=== PATIENT | male | born 1945 | race Hispanic/Latino ===

== ENCOUNTER → 2017-08-13 | Outpatient (CLI) | payer OTHER | END | disposition home or self-care (01) | LOC: SHCH 12:58 | PROVIDERS: ATTEND Internal Medicine Cardiovascular Disease | DX: I35.8 Other nonrheumatic aortic valve disorders (principal); I10 Essential (primary) hypertension | CPT/HCPCS: 93306 ==

== ENCOUNTER → 2017-08-25 | Outpatient (CLI) | payer OTHER ==
[~2017-08-25] VITALS: Ht 170.2 cm; Wt 109.3 kg
[~2017-08-25] MED LIST: REGADENOSON 0.4 MG/5 ML PF SYG IVP SCH
== END | disposition home or self-care (01) ==
LOC: SHCH 08:35 → EDUNIT# 08:40
PROVIDERS: ATTEND Internal Medicine Cardiovascular Disease
DX: I25.119 Atherosclerotic heart disease of native coronary artery with unspecified angina pectoris (principal); I10 Essential (primary) hypertension; E78.5 Hyperlipidemia, unspecified
CPT/HCPCS: 78452; 93017; 96374; A9500 ×2; J2785

== ENCOUNTER 2018-09-06 05:58 | Observation (INO) | payer OTHER ==
[2018-09-03 09:34] VITALS: BP 172/87
[2018-09-03 09:37] LABS: BASOPHILS % (AUTO) 0.8 % (0.0-5.0); EOSINOPHILS % (AUTO) 3.1 % (0.0-8.0); HEMATOCRIT 31.9 % (42-54); LYMPHOCYTES % (AUTO) 25.1 % (21.0-51.0); MEAN CORPUSCULAR HEMOGLOBIN 28.2 pg (27.0-33.0); MEAN CORPUSCULAR HGB CONC 33.8 g/dL (32.0-36.0); MEAN CORPUSCULAR VOLUME 83.5 fL (79-99); MONOCYTES % (AUTO) 6.2 % (3.0-13.0); NEUTROPHILS % (AUTO) 64.8 % (40.0-77.0); PLATELET COUNT (AUTO) 224 K/uL (130-400); RED BLOOD CELL COUNT(AUTO) 3.82 MIL/uL (4.50-6.20); RED CELL DISTRIBUTION WIDTH 18.2 % (11.0-15.5); WHITE BLOOD COUNT (AUTO) 7.7 K/uL (4.8-10.8)
[2018-09-03 09:45] LABS: CREATININE 1.2 mg/dL (0.5-1.5); POTASSIUM 4.3 mmol/L (3.5-5.1)
[2018-09-03 09:49] LABS: INR 1.03 (0.85-1.15); PARTIAL THROMBOPLASTIN TIME 30.4 SEC (26.3-35.5); PROTHROMBIN TIME 10.8 SEC (9.6-11.6)
[~2018-09-06] VITALS: Ht 167.6 cm; Wt 95.8 kg
[2018-09-06] VITALS (13 sets, daily range): BP systolic 116–186; BP diastolic 68–84
[~2018-09-06 05:58] MED LIST changes: +AMIO200T5 PO; +APIX5TAB PO; +ATOR20TA65 PO; +BETA1TAB20 PO; +DiphenhydrAMINE HCL 50 MG/ML VIAL IVP SCH; +ERGO500014 PO; +FINA5TAB41 PO; +FURO40TA5 PO; +IRON PO; +METF-445 PO; +METHYLPREDNISOLONE SOD SUCC 125MG/2ML VIAL IVP SCH; +PANT40TA PO; -REGADENOSON 0.4 MG/5 ML PF SYG IVP SCH; +SODIUM CHLORIDE 0.9% 1000ML 1,000 ML IV SCH; +TAMS0.4C32 PO
[2018-09-06] MEDS ORDERED: DiphenhydrAMINE HCL 50 MG/ML VIAL ONE (07:05)
[2018-09-06] MEDS ORDERED: METHYLPREDNISOLONE SOD SUCC 125MG/2ML VIAL ONE (07:06)
[2018-09-06] MEDS ORDERED: BUPIVACAINE/PF 0.25% 30ML VIAL IJ ONE (07:15)
[2018-09-06] MEDS ORDERED: CEFAZOLIN SODIUM 1 GM VIAL ONE (07:15)
[2018-09-06] MEDS ORDERED: MIDAZOLAM HCL 1 MG/ML 2ML VIAL ONE ×2 (07:16→07:42)
[2018-09-06] MEDS ORDERED: LIDOCAINE HCL 1% MDV 50ML VIAL ONE (07:16)
[2018-09-06] MEDS ORDERED: MEPERIDINE-PF 25 MG/ML SYG ONE ×2 (07:16→07:42)
[2018-09-06] MEDS ORDERED: VANCOMYCIN 1GM+NS 250ML 500 ML IV ONE (07:26)
[2018-09-06] MEDS ORDERED: OCTYL 2-CYANOACRYLATE 1 EACH TP ONE (08:35)
[2018-09-06] MEDS ORDERED: ERGOCALCIFEROL (VITAMIN D2) 50,000 UNIT CAPSULE PO SCH (09:00)
[2018-09-06] MEDS ORDERED: DEXTROSE 50%-WATER 50 ML DISP.SYRIN IV PRN (09:00)
[2018-09-06] MEDS: METFORMIN HCL 850 MG TABLET PO SCH ×3 (09:00→17:00)
[2018-09-06] MEDS ORDERED: ACETAMINOPHEN-CODEINE 300/30MG TAB PO PRN ×2 (09:00)
[2018-09-06] MEDS ORDERED: MULTIVITAMIN WITH MINERALS TABLET PO SCH (09:00)
[2018-09-06] MEDS ORDERED: ONDANSETRON HCL 4 MG/2 ML VIAL IV PRN (09:00)
[2018-09-06] MEDS: FERROUS SULFATE 325 MG TABLET.DR PO SCH (14:36)
[2018-09-06] MEDS: FINASTERIDE 5 MG TABLET PO SCH (14:36)
[2018-09-06] MEDS: PANTOPRAZOLE SODIUM 40 MG TABLET.DR PO SCH ×2 (14:36→21:13)
[2018-09-06] MEDS: AMIODARONE HCL 200 MG TABLET PO SCH (14:36)
[2018-09-06] MEDS: TAMSULOSIN HCL 0.4 MG CAP.ER.24H PO SCH (14:37)
[2018-09-06] MEDS: FUROSEMIDE 40 MG TABLET PO SCH (14:37)
[2018-09-06] MEDS: INSULIN HUMULIN R 100 UNIT/ML 3ML SQ SCH ×3 (15:05→21:12)
--- NOTE | 2018-09-06 20:00 | NUR ---
DRESSING TO LEFT UPPER SHOULDER CLEAN, DRY, INTACT. POSITIVE RADIAL PULSE, ARM/HAND WARM, MOVEMENT AND SENSATION INTACT. SLING IN PLACE.
[2018-09-06] MEDS: VIT C PO SCH (21:00)
[2018-09-06] MEDS: ZINC PO SCH (21:00)
[2018-09-06] MEDS: VIT E PO SCH (21:00)
[2018-09-06] MEDS ORDERED: ATORVASTATIN CALCIUM 40 MG TABLET PO SCH (21:00)
[2018-09-06] MEDS: COPPER PO SCH (21:00)
[2018-09-06] MEDS: VIT A PO SCH (21:00)
[2018-09-06] MEDS: CEFAZOLIN SODIUM 1 GM VIAL IVP SCH (21:14)
[2018-09-07 03:00] VITALS: BP 133/69
[2018-09-07] MEDS: INSULIN HUMULIN R 100 UNIT/ML 3ML SQ SCH ×2 (06:31→11:30)
--- NOTE | 2018-09-07 06:39 | NUR ---
DRESSING TO LEFT UPPER CHEST CLEAN, DRY, INTACT. SENSATION, WARMTH AND MOVEMENT INTACT TO LEFT ARM AND HAND. SLING IN PLACE.
[2018-09-07 07:00] VITALS: BP 144/80
--- NOTE | 2018-09-07 07:39 | NUR ---
DR. KOHLER IN ROOM SPEAKING WITH PT.
[2018-09-07] MEDS: VIT E PO SCH (09:00)
[2018-09-07] MEDS: VIT A PO SCH (09:00)
[2018-09-07] MEDS: VIT C PO SCH (09:00)
[2018-09-07] MEDS: COPPER PO SCH (09:00)
[2018-09-07] MEDS: ZINC PO SCH (09:00)
--- NOTE | 2018-09-07 09:00 | NUR ---
RESTING IN BED WITH HOB AT SEMI-SANDOVAL'S POSITION. AAOX3, RESP.'S EVEN AND UNLABORED. DENIES ANY C/O SOB, DENIES ANY CURRENT PAIN. LEFT UPPER CHEST WITH DRSG IN PLACE, D/I; AREA SOFT, NO ECCHYMOSIS OR HEMATOMA NOTED. LEFT ARM WITH SLING IN PLACE, PT. AND SPOUSE AT BEDSIDE INSTRUCTED ON LEFT ARM RESTRICTIONS/PRECAUTIONS, VERBALIZED MUTUAL UNDERSTANDING. ALL QUESTIONS ANSWERED.
[2018-09-07] MEDS: TAMSULOSIN HCL 0.4 MG CAP.ER.24H PO SCH (09:18)
[2018-09-07] MEDS: FINASTERIDE 5 MG TABLET PO SCH (09:18)
[2018-09-07] MEDS: PANTOPRAZOLE SODIUM 40 MG TABLET.DR PO SCH (09:18)
[2018-09-07] MEDS: CEFAZOLIN SODIUM 1 GM VIAL IVP SCH (09:19)
[2018-09-07] MEDS: AMIODARONE HCL 200 MG TABLET PO SCH (09:19)
[2018-09-07] MEDS: FUROSEMIDE 40 MG TABLET PO SCH (09:19)
[2018-09-07] MEDS: METFORMIN HCL 850 MG TABLET PO SCH ×2 (09:19→11:54)
[2018-09-07] MEDS: FERROUS SULFATE 325 MG TABLET.DR PO SCH (09:19)
--- NOTE | 2018-09-07 09:37 | NUR ---
DR. Sissy WOODARD IN ROOM SPEAKING WITH PT. AND INFORMING RE:F/C EXCHANGE NOT RECOMMENDED AT THIS TIME. PT. AND SPOUSE AT BEDSIDE INFORMED OF PLAN OF CARE AND DISCHARGE DISPOSITION BY DR. Sissy WOODARD, QUESTIONS ANSWERED.
== END 2018-09-07 11:55 | disposition home or self-care (01) ==
LOC: DAH 05:58 → DAHIP 05:59 → DAH 05:59 → 2AH 09:27
PROVIDERS: ADMIT Internal Medicine; ATTEND Internal Medicine
DX: I44.1 Atrioventricular block, second degree (principal); I48.0 Paroxysmal atrial fibrillation; E11.9 Type 2 diabetes mellitus without complications; I10 Essential (primary) hypertension; E78.2 Mixed hyperlipidemia; I25.10 Atherosclerotic heart disease of native coronary artery without angina pectoris; Z95.1 Presence of aortocoronary bypass graft; Z95.0 Presence of cardiac pacemaker; Z79.899 Other long term (current) drug therapy
CPT/HCPCS: 33208; 36415; 71046; 80048; 82948 ×5; 85025; 85610; 85730; 93005; 96372 ×2; 96374; 96376; A4218; A4606; C1785; C1894; C1898 ×2; G0378 ×30; J0690 ×2; J1200; J1815 ×3; J2175 ×2; J2250 ×2; J2930; J3370; J3490 ×2; J7030; 99156; 99157

== ENCOUNTER → 2018-09-10 | Outpatient (CLI) | payer OTHER ==
[~2018-09-10] MED LIST changes: -DiphenhydrAMINE HCL 50 MG/ML VIAL IVP SCH; -METHYLPREDNISOLONE SOD SUCC 125MG/2ML VIAL IVP SCH; -SODIUM CHLORIDE 0.9% 1000ML 1,000 ML IV SCH
== END | disposition home or self-care (01) ==
LOC: SHCH 10:00
PROVIDERS: ATTEND Internal Medicine Cardiovascular Disease
DX: I51.7 Cardiomegaly (principal); I44.1 Atrioventricular block, second degree; Z95.1 Presence of aortocoronary bypass graft
CPT/HCPCS: 93306

== ENCOUNTER 2018-11-19 07:18 | Day surgery (SDC) | payer MEDICARE ==
[2018-11-17 17:11] LABS: BASOPHILS % (AUTO) 0.7 % (0.0-5.0); EOSINOPHILS % (AUTO) 2.7 % (0.0-8.0); HEMATOCRIT 30.2 % (42-54); LYMPHOCYTES % (AUTO) 26.1 % (21.0-51.0); MEAN CORPUSCULAR HEMOGLOBIN 30.3 pg (27.0-33.0); MEAN CORPUSCULAR HGB CONC 33.5 g/dL (32.0-36.0); MEAN CORPUSCULAR VOLUME 90.4 fL (79-99); MONOCYTES % (AUTO) 6.8 % (3.0-13.0); NEUTROPHILS % (AUTO) 63.7 % (40.0-77.0); PLATELET COUNT (AUTO) 245 K/uL (130-400); RED BLOOD CELL COUNT(AUTO) 3.34 MIL/uL (4.50-6.20); RED CELL DISTRIBUTION WIDTH 14.5 % (11.0-15.5); WHITE BLOOD COUNT (AUTO) 8.3 K/uL (4.8-10.8)
[2018-11-17 17:20] LABS: CREATININE 1.7 mg/dL (0.5-1.5); POTASSIUM 4.4 mmol/L (3.5-5.1)
--- NOTE | 2018-11-17 17:45 | NUR ---
NURSING: DR. CHAUDHRY NOTIFIED OF ABNORMAL EKG, NO NEW ORDERS RECEIVED, OK TO PROCEED.
[2018-11-17 18:22] VITALS: BP 148/69
--- NOTE | 2018-11-18 12:33 | NUR ---
ABNORMAL LABS Dr Osborne reviewed abnormal labs h&h, hct ,creatatine no new orders given .ok to preceed with surgery also faxed abnormal labs to Dr Berg office Addendum: 11/18/18 at 1237 by ANGELA MACKEY RN RN Amended: Links added.
--- NOTE | 2018-11-18 14:04 | NUR ---
LABS ANTONIO ON PHONE. PER DR. WASHINGTON PROCEED WITH PLANNED PROCEDURE. NO ORDERS RECEIVED.
[~2018-11-19] VITALS: Ht 170.2 cm; Wt 95.0 kg
[2018-11-19] VITALS (18 sets, daily range): BP systolic 128–156; BP diastolic 49–86
[2018-11-19] MEDS: CEFTRIAXONE SODIUM 1 GM IVP SCH ×2 (06:00→08:45)
[~2018-11-19 07:18] MED LIST changes: -AMIO200T5 PO; -BETA1TAB20 PO; -ERGO500014 PO
[2018-11-19] MEDS ORDERED: SODIUM CHLORIDE 0.9% 1000ML 1,000 ML IV ONE (07:47)
[2018-11-19] MEDS ORDERED: NEOSTIGMINE 5MG/5ML SYR IV ONE (07:55)
[2018-11-19] MEDS ORDERED: DEXAMETHASONE SOD PHOSPHATE 10MG/ML 1ML VIAL ONE (07:55)
[2018-11-19] MEDS ORDERED: LIDOCAINE PF 2% 5ML ABBOJECT ONE (07:55)
[2018-11-19] MEDS ORDERED: SUCCINYLCHOLINE 200MG/10ML SYR ONE (07:55)
[2018-11-19] MEDS ORDERED: ONDANSETRON HCL 4 MG/2 ML VIAL ONE (07:55)
[2018-11-19] MEDS ORDERED: MIDAZOLAM HCL 1 MG/ML 2ML VIAL ONE (07:55)
[2018-11-19] MEDS ORDERED: GLYCOPYRROLATE 1 MG/5 ML SYRINGE ONE (07:55)
[2018-11-19] MEDS ORDERED: FENTANYL CITRATE PF 50 MCG/1 ML 2ML VIAL ONE (07:56)
[2018-11-19] MEDS ORDERED: ROCURONIUM 10MG/1ML SYR 10 MG/ML ML ONE (07:56)
[2018-11-19] MEDS ORDERED: PROPOFOL 10 MG/ML 20ML VIAL IV ONE (07:56)
[2018-11-19] MEDS ORDERED: KETAMINE 50MG/ML SYRINGE 50 MG/ML DISP.SYRIN IV ONE (07:58)
[2018-11-19] MEDS ORDERED: EPHEDRINE SULFATE 50 MG/ML AMPULE ONE (08:12)
[2018-11-19] MEDS ORDERED: OPIUM/BELLADONNA ALKALOIDS 1 EACH SUPP.RECT RC ONE (10:05)
--- NOTE | 2018-11-19 10:45 | NUR ---
POST-PROCEDURE RECEIVED FROM RR VIA STRETCHER S/P GREENLIGHT LASER. AWAKE IN NO ACUTE DISTRESS. CONNECTED TO CONTINUOUS CARDIOPULMONARY MONITORING. SIDE RAILS UP X2, STRETCHER IN LOWEST POSITION, CALL LIGHT W/IN REACH. 19F F/C TO BSD, DRAINING LIGHT PINK URINE. DENIES PAIN.
[2018-11-19] MEDS ORDERED: PHENAZOPYRIDINE HCL 200 MG TABLET ONE (11:05)
--- NOTE | 2018-11-19 11:27 | NUR ---
DISCHARGE DAY PT DISCHARGE INSTRUCTION SHEET, MED REC, AND PT EDUCATION REVIEWED WITH FAMILY AND PT. EDUCATED AND DEMONSTRATED HOW TO CHANGE TO LEG BACK OR BSD BAG. PT AND FAMILY VERBALIZED UNDERSTANDING. OPPORTUNITY GIVEN TO ASK QUESTION. NO QUESTIONS OR CONCERNS VOICED.
--- NOTE | 2018-11-19 11:45 | NUR ---
ACTIVITY UP TO EDGE OF BED. TOLERATED W/O C/O OF NAUSEA/DIZZINESS.
--- NOTE | 2018-11-19 12:04 | NUR ---
DISCHARGE DISCHARGED VIA W/C. AWAKE IN NO ACUTE DISTRESS. DENIES PAIN. F/C CONNECTED TO LEG BACK DRAINING PINK TINGED URINE.
--- NOTE | 2018-11-19 12:58 | NUR ---
PRESCRIPTION AUDELIA, PHARMACIST FROM [facility] CALLED THAT PER THEIR RECORDS PT HAS ALLERGY TO PCN/ONLY REPORTED ALLERGY BY PT IN HOSPITAL IS IODINE/SPOKE WITH DR. WASHINGTON/RECEIVED ORDER FOR KEFLEX 500MG PO BID/PRESCRIPTION CALLED IN.
== END 2018-11-19 12:04 | disposition home or self-care (01) ==
LOC: DAH 07:18
PROVIDERS: ATTEND Urology
DX: N40.1 Benign prostatic hyperplasia with lower urinary tract symptoms (principal); R33.8 Other retention of urine; I48.91 Unspecified atrial fibrillation; E11.9 Type 2 diabetes mellitus without complications; I25.10 Atherosclerotic heart disease of native coronary artery without angina pectoris; I25.2 Old myocardial infarction; Z88.0 Allergy status to penicillin; Z88.3 Allergy status to other anti-infective agents; Z91.041 Radiographic dye allergy status; Z95.1 Presence of aortocoronary bypass graft; Z79.01 Long term (current) use of anticoagulants; Z98.890 Other specified postprocedural states; Z79.84 Long term (current) use of oral hypoglycemic drugs; Z79.899 Other long term (current) drug therapy; Z87.891 Personal history of nicotine dependence; Z83.3 Family history of diabetes mellitus
CPT/HCPCS: 36415; 52648; 80048; 82948 ×2; 85025; 93005; A4340; A4354; A4358; A4510; A4600; J0330; J0696; J1100; J2001; J2250; J2405; J2704; J2710; J3010; J3490 ×3; J7030; J7120

== ENCOUNTER 2018-11-20 22:31 | Emergency (ER) | payer MEDICARE | END 2018-11-20 23:43 | disposition home or self-care (01) | LOC: EDH 22:31 | DX: T83.098A Other mechanical complication of other urinary catheter, initial encounter (principal); I10 Essential (primary) hypertension; E11.9 Type 2 diabetes mellitus without complications; E78.5 Hyperlipidemia, unspecified; Z95.1 Presence of aortocoronary bypass graft; Z90.49 Acquired absence of other specified parts of digestive tract; Z88.0 Allergy status to penicillin; Z91.041 Radiographic dye allergy status | CPT/HCPCS: 99281 ==

== ENCOUNTER 2018-12-11 06:46 | Emergency (ER) | payer MEDICARE, OTHER | END 2018-12-11 08:21 | disposition home or self-care (01) | LOC: EDH 06:46 | DX: T83.038A Leakage of other urinary catheter, initial encounter (principal); I10 Essential (primary) hypertension; I25.2 Old myocardial infarction; E11.9 Type 2 diabetes mellitus without complications; E78.5 Hyperlipidemia, unspecified; Z95.1 Presence of aortocoronary bypass graft; Z87.891 Personal history of nicotine dependence; Z88.0 Allergy status to penicillin; Z88.8 Allergy status to other drugs, medicaments and biological substances | CPT/HCPCS: 99281 ==

== ENCOUNTER → 2019-06-21 | Outpatient (CLI) | payer OTHER ==
[~2019-06-21] MED LIST changes: +DIATR MEGLU/DIATRIZOATE SODIUM 30 ML BOTTLE ONE
== END | disposition home or self-care (01) ==
LOC: RAH 09:55
PROVIDERS: ATTEND Internal Medicine
DX: K80.20 Calculus of gallbladder without cholecystitis without obstruction (principal); K44.9 Diaphragmatic hernia without obstruction or gangrene; N28.1 Cyst of kidney, acquired; I70.0 Atherosclerosis of aorta; K57.30 Diverticulosis of large intestine without perforation or abscess without bleeding; I10 Essential (primary) hypertension; E78.5 Hyperlipidemia, unspecified; E11.3292 Type 2 diabetes mellitus with mild nonproliferative diabetic retinopathy without macular edema, left eye; I25.10 Atherosclerotic heart disease of native coronary artery without angina pectoris; Z90.89 Acquired absence of other organs; Z95.0 Presence of cardiac pacemaker
CPT/HCPCS: 74176; Q9963

== ENCOUNTER → 2020-12-06 | Outpatient (CLI) | payer OTHER ==
[~2020-12-06] MED LIST changes: -DIATR MEGLU/DIATRIZOATE SODIUM 30 ML BOTTLE ONE
== END | disposition home or self-care (01) ==
LOC: SHCH 15:08
PROVIDERS: ATTEND Internal Medicine Cardiovascular Disease
DX: I34.0 Nonrheumatic mitral (valve) insufficiency (principal); E78.5 Hyperlipidemia, unspecified; E11.9 Type 2 diabetes mellitus without complications; R55 Syncope and collapse; I25.10 Atherosclerotic heart disease of native coronary artery without angina pectoris; Z95.1 Presence of aortocoronary bypass graft
CPT/HCPCS: 93306

== ENCOUNTER → 2022-02-26 | Outpatient (CLI) | payer OTHER | END | disposition home or self-care (01) | LOC: SHCH 13:54 | PROVIDERS: ATTEND Internal Medicine Cardiovascular Disease | DX: I51.7 Cardiomegaly (principal); R01.1 Cardiac murmur, unspecified | CPT/HCPCS: 93306 ==

== ENCOUNTER → 2023-09-23 | Outpatient (CLI) | payer OTHER | END | disposition home or self-care (01) | LOC: SHCH 14:25 | PROVIDERS: ATTEND Internal Medicine Cardiovascular Disease | DX: I08.8 Other rheumatic multiple valve diseases (principal); I11.9 Hypertensive heart disease without heart failure; I25.10 Atherosclerotic heart disease of native coronary artery without angina pectoris; R06.00 Dyspnea, unspecified; E78.5 Hyperlipidemia, unspecified; E11.9 Type 2 diabetes mellitus without complications; Z95.1 Presence of aortocoronary bypass graft; Z95.0 Presence of cardiac pacemaker | CPT/HCPCS: 93306 ==